=== PATIENT | male | born 1975 | race Caucasian/White ===

== ENCOUNTER 2023-08-20 14:41 | Emergency (ER) | payer OTHER, SELFPAY ==
--- NOTE | 2023-08-20 14:51 | ED.URI ---
HPI - URI/Sore Throat General Chief Complaint: Upper Respiratory Infection Stated Complaint: Chest Pain/Pressure, Ears Ringing, Congestion Time Seen by Provider: 08/20/23 14:52 Source: patient Mode of arrival: ambulatory Limitations: no limitations History of Present Illness HPI Narrative: Rolo is a 47-year-old male patient presenting to the clinic today with complaints of chest pain/pressure, ears ringing, and congestion for the past 2 weeks. He reports history of 3 heart stents-2 years ago. 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 History of high blood pressure and hyperlipidemia. Denies being a smoker. Family history of a grandparent dying at the age of 45 due to a [place]. MD elicited complaint: sore throat and nasal congestion Related Data Home Medications Medication Instructions Recorded Confirmed allopurinol 300 mg tablet 300 mg PO DAILY 08/20/23 08/20/23 aspirin 81 mg chewable tablet 81 mg PO DAILY 08/20/23 08/20/23 atorvastatin 80 mg tablet 80 mg PO HS 08/20/23 08/20/23 carvedilol 12.5 mg tablet 12.5 mg PO DAILY 08/20/23 08/20/23 colchicine 0.6 mg tablet 0.6 mg PO DAILY 08/20/23 08/20/23 losartan 25 mg tablet 25 mg PO DAILY 08/20/23 08/20/23 Allergies Allergy/AdvReac Type Severity Reaction Status Date / Time No Known Allergies Allergy Verified 08/20/23 14:44 Review of Systems Review of Systems: Pertinent positives per HPI. Patient denies any fever, chills, rash, headache, visual changes, dizziness, cough, shortness of breath, chest pain, palpitations, nausea, vomiting, diarrhea, constipation, abdominal pain, or any urinary issues. [facility] Comments At the time of my signature, I reviewed and agree with the nursing past medical, surgical, social, and family history. There is no relevant family history pertinent to the patient complaint. Exam Narrative: General: Well-developed, obese, in no apparent distress Head: Normocephalic, atraumatic Eyes: Pupils equally round and reactive to light bilaterally, EOM intact, sclera and conjunctive clear, no discharge, lids normal Ears: TMs intact and clear, ear canals clear, no drainage, grossly hearing normal. Nose: Nares patent, no discharge, no inflammation, no sinus tenderness. Mouth: Oral pharynx without lesions or masses, good dentition, MMM. Neck: Supple, trachea midline, no enlargement of anterior or posterior cervical nodes, no thyroid masses or goiter palpable. Cardio: Regular rate and rhythm, s1 and s2 normal, no murmur appreciated. Resp: Clear to auscultation bilaterally, no rhonchi, rales, wheezing or rubs Course Course Emergency Course: Portions of this record may have been created with voice recognition software. Level of Care: Express Care Visit Vital Signs Vital signs: Vital signs reviewed Transfer Transfered to: Other ([facility]) Transportation: Other (private car) Transfer rationale: Chest tightness/pressure, cough, chest congestion Accepting physician: Dr. Mayberry Transfer comments: private car MDM - URI/Sore Throat MDM Narrative Medical decision making narrative: At the time of visit patient is resting comfortably on the exam table. Patient appears to be nontoxic. EKG: EKG shows sinus bradycardia with heart rate of 59 beats per minute without any ST elevation, depression, or T-wave inversion. Plan: Patient has history of cardiac stents and is complaining of some chest tightness/pressure. Blood pressure is elevated in the clinic today. I feel that patient needs a cardiac workup. Patient initially agreed to transfer. Contacted [facility] and [place], [place] and spoke with Francisco J AVELAR and report was given for continuity of care. Dr. Mayberry accepts patient for transfer. Differential Diagnosis Differential diagnosis: Likely upper respiratory infection, otitis media, sinusitis, viral infection, bronchitis, influenza, pharyngitis and other (COVID) ECG Data EKG #1: Attestation: I personally reviewed and interpr
[2023-08-20 14:53] VITALS: BP 144/103; PULSE 56; RESP 20; TEMP 36.7; O2SAT 100
--- NOTE | 2023-08-20 14:54 | ECG_ITS ---
Measurements Intervals [place] Rate: 59 P: 44 AR: 177 QRS: -18 QRSD: 92 T: 37 QT: 402 QTc: 401 Interpretive Statements SINUS BRADYCARDIA BASELINE ARTIFACT- I, II, III, AVR, AVL, AVF, V2 BORDERLINE ECG NO PREVIOUS ECG AVAILABLE FOR COMPARISON Electronically Signed On 08-20-2023 15:18:42 CDT by Luc Gonzalez D.O.
== END 2023-08-20 15:30 | disposition short-term general hospital (02) ==
PROVIDERS: Emergency Provider Nurse Practitioner Family; PCP Emergency Medicine
DX: R07.89 Other chest pain (principal); H93.13 Tinnitus, bilateral; R05.9 Cough, unspecified; Z95.5 Presence of coronary angioplasty implant and graft; E78.00 Pure hypercholesterolemia, unspecified; I10 Essential (primary) hypertension; K21.9 Gastro-esophageal reflux disease without esophagitis; L40.50 Arthropathic psoriasis, unspecified; M10.9 Gout, unspecified
CPT/HCPCS: 93005; 99213; G0463